=== PATIENT | male | born 1985 | race Caucasian/White ===

== ENCOUNTER 2016-08-27 10:36 | Emergency (ER) | payer BC ==
[~2016-08-27] VITALS: Ht 188 cm; Wt 122.5 kg
[~2016-08-27 10:36] MED LIST: INDOCIN25 MG ORAL; NORCO 10/3251 EA ORAL
[2016-08-27] MEDS ORDERED: AMERICAINE57 GM TP (11:24)
[2016-08-27] MEDS ORDERED: ANUSOL-HC25 MG RECTAL (11:24)
[2016-08-27] MEDS ORDERED: LACTULOSE20 GM/301 ORAL (11:24)
[2016-08-27 11:25] VITALS: BP 146/86
[2016-08-27 11:35] VITALS: BP 146/86
--- NOTE | 2016-08-28 03:37 | Emergency Room Report ---
History of Present Illness General Chief Complaint: Male Urogenital Problems Source: Patient, Family Member Present Illness HPI Patient presents with hemorrhoid. Has been treating with Prep H. Mom helping. She suggested possible fissure. No blood. Denies constipation. Pain and anxiety. Denies long time on toilet. No h/o rectal CA in family. NO fevers. Pain 3/10, worse on toilet. No abdominal pain. No fevers, URI sy, dysuria. BP noted high for the first time here. Anxious. Allergies: Coded Allergies: No Known Allergies (Unverified , 03/02/14) Patient History Past Medical History: see triage record Social History Narrative at home Reviewed Nursing Documentation: PMH: Agreed, PSxH: Agreed Nursing Documentation-PMH Past Medical History: No Stated History Review of Systems All Other Systems: negative except mentioned in HPI Physical Exam Vital Signs Date Time Temp Pulse Resp B/P Pulse Ox O2 Delivery O2 Flow Rate FiO2 08/27/16 10:58 98.1 119 20 159/119 98 Room Air Sp02 EP Interpretation: reviewed, normal General Appearance: well appearing, no apparent distress, GCS 15 Head: normocephalic, atraumatic Eyes: bilateral eye PERRL, bilateral eye normal inspection ENT: hearing grossly normal, normal voice Neck: full range of motion, supple Respiratory: no respiratory distress, speaking full sentences Gastrointestinal: normal bowel sounds, non tender, soft, no mass, non-distended Rectal: hemorrhoids - thrombosed, no fissure seen. No blood. Musculoskeletal: back normal, digits/nails normal, gait/station normal Neurologic: alert, normal gait, grossly normal Psychiatric: mood/affect normal, anxious Skin: no rash Medical Decision Making Diagnostic Impression: Primary Impression: Hemorrhoid Qualified Codes: K64.9 - Unspecified hemorrhoids ER Course Patient with hemorrhoid with concern over fissure. Diagnosis is clinical. No evidence of bleeding. No labs or imaging indicated. BP also initially high and anxious. No prior h/o HTN. Patient stable for outpatient observation and treatment. Last Vital Signs Date Time Temp Pulse Resp B/P Pulse Ox O2 Delivery O2 Flow Rate FiO2 08/27/16 11:35 98.1 118 16 146/86 96 Room Air Status: improved Disposition: HOME, SELF-CARE Condition: Stable Scripts Lactulose (LACTULOSE*) 20 Gm/30 Ml Solution 30 ML ORAL BID, #240 ML 0 Refills Prov: Rowdy Brian M.D. 08/27/16 Benzocaine (AMERICAINE) 57 Gm Aerosol 1 APPLIC TP Q6HR Y for For Pain, #60 GM Prov: Rowdy Brian M.D. 08/27/16 Hydrocortisone Acetate* (ANUSOL-HC*) 25 Mg Supp.rect 1 SUPP RECTAL TWICE A DAY for 7 Days, #14 SUPP Prov: Rowdy Brian M.D. 08/27/16 Referrals: NON PHYSICIAN (PCP) Patient Instructions: Constipation, Adult, Hemorrhoids Additional Instructions: Find an MD and see him/her soon Rowdy Brian M.D. Aug 28, 2016 03:37
== END 2016-08-27 11:35 | disposition home or self-care (01) ==
LOC: EMR 11:30
DX: K64.5 Perianal venous thrombosis (principal)
CPT/HCPCS: 99284